=== PATIENT | female | born 1980 | race Caucasian/White ===

== ENCOUNTER 2022-02-13 22:23 | Emergency (ER) | payer OTHER | END 2022-02-13 23:34 | disposition home or self-care (01) | LOC: FER 22:23 | DX: M79.672 Pain in left foot (principal); Z28.310 Unvaccinated for COVID-19; F17.200 Nicotine dependence, unspecified, uncomplicated; W22.8XXA Striking against or struck by other objects, initial encounter | CPT/HCPCS: 73630 ==